=== PATIENT | male | born 1950 | race Asian ===

== ENCOUNTER 2024-06-02 13:09 | Emergency (ER) | payer OTHER ==
[~2024-06-02] VITALS: Ht 177.8 cm; Wt 77.1 kg
[2024-06-02 13:26] VITALS: BP_SYST 143; PULSE 95; RESP 16; TEMP 101.3; O2SAT 96
[2024-06-02 14:31] LABS: BILIRUBIN,URINE 1+ (NEGATIVE); BLOOD, URINE 2+ (NEGATIVE); COLOR,URINE YELLOW (YELLOW); GLUCOSE,URINE NEGATIVE (NEGATIVE); KETONES,URINE NEGATIVE (NEGATIVE); LEUKOCYTE ESTERASE ,URINE 2+ (NEGATIVE); NITRITE, URINE POSITIVE (NEGATIVE); PROTEIN URINE 2+ (NEGATIVE)
[2024-06-02 14:37] LABS: COVID19 ANTIGEN SOFIA FIA NEGATIVE (NEGATIVE)
[2024-06-02 14:50] LABS: CLARITY/URINE CLOUDY (CLEAR)
[2024-06-02 14:52] LABS: BACTERIA,URINE MODERATE /HPF (None Seen); MUCUS,URINE 1+ /LPF (None Seen); WBC,URINE 80-100 /HPF (0-3)
[2024-06-02 14:56] LABS: INFLUENZA TYPE A NEGATIVE (NEGATIVE)
[2024-06-02 14:57] LABS: INFLUENZA TYPE B NEGATIVE (NEGATIVE)
[2024-06-02 16:44] VITALS: BP_SYST 143; PULSE 95; RESP 16; TEMP 101.3; O2SAT 96
[2024-06-02] MEDS ORDERED: IBUP-1971 PO (16:56)
[2024-06-02] MEDS ORDERED: NITR-85 PO (16:56)
[2024-06-02] MEDS: cefTRIAXone 1 GM VIAL IM ONE (17:04)
[2024-06-02] MEDS: IBUPROFEN 800 MG TABLET PO ONE (17:04)
[2024-06-02] MEDS ORDERED: LIDOCAINE 1%, 20 ML MDV 20 ML ONE (17:05)
== END 2024-06-02 16:59 | disposition home or self-care (01) ==
LOC: SED 13:09
DX: N39.0 Urinary tract infection, site not specified (principal); R33.8 Other retention of urine; Z20.822 Contact with and (suspected) exposure to COVID-19; I10 Essential (primary) hypertension; E78.5 Hyperlipidemia, unspecified; Z79.899 Other long term (current) drug therapy; Z79.2 Long term (current) use of antibiotics
CPT/HCPCS: 99284; 87426; 81001; 87086; 87186; 36415; 87804 ×2; 51702; 96372; J0696; 81000; 81015; J2001

== ENCOUNTER 2024-06-18 17:25 | Emergency (ER) | payer OTHER ==
[~2024-06-18] VITALS: Ht 177.8 cm; Wt 78.0 kg
[~2024-06-18 17:25] MED LIST: IBUP-1971 PO; NITR-85 PO
[2024-06-18 17:38] VITALS: BP_SYST 156; PULSE 108; RESP 16; TEMP 97.2; O2SAT 99
[2024-06-18 18:06] VITALS: BP_SYST 156; PULSE 108; RESP 16; TEMP 97.2; O2SAT 99
== END 2024-06-18 18:30 | disposition home or self-care (01) ==
LOC: SED 17:25
DX: R33.8 Other retention of urine (principal); Z79.899 Other long term (current) drug therapy; Z79.2 Long term (current) use of antibiotics
CPT/HCPCS: 99284